=== PATIENT | female | born 1980 | race Hispanic/Latino ===

== ENCOUNTER 2018-03-19 00:05 | Emergency (ER) | payer MEDICARE ==
[2018-03-19 00:22] LABS: APPEARANCE,URINE Clear (CLEAR); BILIRUBIN,URINE Negative (NEGATIVE); COLOR,URINE Yellow (YELLOW); GLUCOSE, URINE (UA) Negative (NEGATIVE); KETONES,URINE Negative (NEGATIVE); LEUKOCYTE ESTERASE ,URINE Negative (NEGATIVE); NITRATE,URINE Negative (NEGATIVE); OCCULT BLOOD,URINE Large (NEGATIVE); PROTEIN,URINE Negative (NEGATIVE); UROBILINOGEN,URINE 0.2 mg/dL (0.2-1.0)
[2018-03-19 00:27] LABS: BACTERIA,URINE None Seen /HPF (None Seen); MUCUS,URINE Moderate LPF (None Seen); SQUAMOUS EPITHELIAL CELL,UR Moderate /HPF (0-2); WBC,URINE 0-1 /HPF (0-1)
[2018-03-19 00:32] LABS: BASOPHILS % (AUTO) 0.1 % (0.0-5.0); EOSINOPHILS % (AUTO) 0.7 % (0.0-8.0); HEMATOCRIT 38.6 % (36-48); LYMPHOCYTES % (AUTO) 10.5 % (21.0-51.0); MEAN CORPUSCULAR HEMOGLOBIN 29.6 pg (27.0-33.0); MEAN CORPUSCULAR HGB CONC 33.7 g/dL (32.0-36.0); MEAN CORPUSCULAR VOLUME 87.9 fL (79-99); MONOCYTES % (AUTO) 2.6 % (3.0-13.0); NEUTROPHILS % (AUTO) 86.1 % (40.0-77.0); PLATELET COUNT (AUTO) 359 K/uL (130-400); RED BLOOD CELL COUNT(AUTO) 4.39 MIL/uL (4.00-5.50); RED CELL DISTRIBUTION WIDTH 13.4 % (11.0-15.5); WHITE BLOOD COUNT (AUTO) 12.1 K/uL (4.8-10.8)
[2018-03-19] MEDS ORDERED: ONDANSETRON HCL 4 MG/2 ML VIAL ONE ×2 (00:33→01:46)
[2018-03-19] MEDS ORDERED: ACETAMINOPHEN 325 MG TAB ONE (00:34)
[2018-03-19] MEDS ORDERED: MORPHINE SULFATE 4 MG/1ML SYG ONE (00:34)
[2018-03-19] MEDS ORDERED: SODIUM CHLORIDE 0.9% 1000ML 1,000 ML IV ONE (00:34)
[2018-03-19 00:42] LABS: CREATININE 0.9 mg/dL (0.5-1.5); POTASSIUM 3.7 mmol/L (3.5-5.1)
[2018-03-19 00:47] LABS: ALBUMIN 3.8 g/dL (3.5-5.0); BILIRUBIN,TOTAL 0.4 mg/dL (0.2-1.0); TOTAL PROTEIN, SERUM 7.6 g/dL (6.0-8.3)
[2018-03-19] MEDS ORDERED: HYOSCYAMINE SULFATE 0.125 MG TAB.SUBL SL ONE (01:16)
[2018-03-19] MEDS ORDERED: KETOROLAC TROMETHAMINE 15MG/ML ONE (01:46)
== END 2018-03-19 02:57 | disposition home or self-care (01) ==
LOC: EDH 00:05
DX: A09 Infectious gastroenteritis and colitis, unspecified (principal); Z98.890 Other specified postprocedural states; Z72.0 Tobacco use
CPT/HCPCS: 36415; 80053; 81001; 81025; 85025; 96361; 96374; 96375; 96376; 99285; J1885; J2270; J2405 ×2; J7030

== ENCOUNTER 2018-08-08 10:02 | Emergency (ER) | payer MEDICARE ==
[2018-08-08] MEDS ORDERED: LORAZEPAM 2 MG/ML 1 ML VIAL ONE (10:27)
[2018-08-08] MEDS ORDERED: ONDANSETRON HCL 4 MG/2 ML VIAL ONE (10:27)
[2018-08-08] MEDS ORDERED: MORPHINE SULFATE 4 MG/1ML SYG ONE (10:27)
[2018-08-08 10:28] LABS: BASOPHILS % (AUTO) 0.6 % (0.0-5.0); EOSINOPHILS % (AUTO) 0.4 % (0.0-8.0); HEMATOCRIT 37.2 % (36-48); MEAN CORPUSCULAR HEMOGLOBIN 29.9 pg (27.0-33.0); MEAN CORPUSCULAR HGB CONC 33.7 g/dL (32.0-36.0); MEAN CORPUSCULAR VOLUME 88.6 fL (79-99); MONOCYTES % (AUTO) 4.4 % (3.0-13.0); NEUTROPHILS % (AUTO) 64.6 % (40.0-77.0); PLATELET COUNT (AUTO) 316 K/uL (130-400); RED CELL DISTRIBUTION WIDTH 13.4 % (11.0-15.5); WHITE BLOOD COUNT (AUTO) 8.3 K/uL (4.8-10.8)
[2018-08-08] MEDS ORDERED: SODIUM CHLORIDE 0.9% 500ML 500 ML IV ONE (10:28)
[2018-08-08 10:33] LABS: CREATININE 0.7 mg/dL (0.5-1.5)
[2018-08-08 10:40] LABS: ALBUMIN 3.7 g/dL (3.5-5.0); BILIRUBIN,TOTAL 0.4 mg/dL (0.2-1.0)
[2018-08-08 10:48] LABS: APPEARANCE,URINE Clear (CLEAR); BILIRUBIN,URINE Negative (NEGATIVE); COLOR,URINE Yellow (YELLOW); GLUCOSE, URINE (UA) Negative (NEGATIVE); KETONES,URINE Negative (NEGATIVE); LEUKOCYTE ESTERASE ,URINE Negative (NEGATIVE); NITRATE,URINE Negative (NEGATIVE); OCCULT BLOOD,URINE Small (NEGATIVE); PROTEIN,URINE Negative (NEGATIVE); UROBILINOGEN,URINE 0.2 mg/dL (0.2-1.0)
[2018-08-08 10:50] LABS: HCG,QUAL RESULT NEGATIVE (NEGATIVE)
[2018-08-08 10:55] LABS: BACTERIA,URINE None Seen /HPF (None Seen); RBC,URINE 0-1 /HPF (0-1); SQUAMOUS EPITHELIAL CELL,UR None Seen /HPF (0-2); WBC,URINE None Seen /HPF (0-1)
== END 2018-08-08 13:20 | disposition home or self-care (01) ==
LOC: EDH 10:02
DX: F14.10 Cocaine abuse, uncomplicated (principal); R07.89 Other chest pain; R51 Headache; Z72.0 Tobacco use
CPT/HCPCS: 36415; 70450; 71045; 80053; 81001; 81025; 82550; 84484; 85025; 93005; 96374; 96375; 99285; J2060; J2270; J2405; J7040

== ENCOUNTER 2018-09-08 13:26 | Emergency (ER) | payer MEDICARE ==
[2018-09-08] MEDS ORDERED: LIDOCAINE HCL 1% 20 ML VIAL ONE (13:57)
== END 2018-09-08 15:20 | disposition home or self-care (01) ==
LOC: EDH 13:26
DX: L02.416 Cutaneous abscess of left lower limb (principal); M79.10 Myalgia, unspecified site; Z98.890 Other specified postprocedural states
CPT/HCPCS: 10060

== ENCOUNTER 2024-11-08 00:15 | Emergency (ER) | payer MEDICARE ==
[~2024-11-08] VITALS: Ht 172.7 cm; Wt 108.9 kg
--- NOTE | 2024-11-08 00:23 | NUR ---
UA CUP PROVIDED
--- NOTE | 2024-11-08 00:32 | ERN ---
ED Note History of Present Illness Stated Complaint: HEADACHE, CHEST PAIN, SOB Chief Complaint: Multiple Complaints Time Seen by MD: 00:30 Dictation: Comes in with multiple complaints she said that she has had some feelings of warmth. Some mild head pain that comes and goes also chest pain that comes and goes. No cough congestion runny nose no fevers chills no medical problems does not take any medications no falls trips traumas Allergies: Coded Allergies: No Known Allergies (Unverified Allergy, Unknown, 11/08/24) Past Medical History Past Medical History: No Pertinent History Surgical History: Other, BTL Surgical History Other: BACK LMP: Oct 16, 2024 Review of System Dictation Constitutional: Negative for fever,chills, and weight loss Eyes: Negative for injury, pain,redness, and discharge ENT: Negative for injury,pain or swelling Cardiovascular: Chest pain Respiratory: Negative for shortness of breath, cough, and wheezing, Abdomen/GI: Negative for abdominal pain, nausea, vomiting, diarrhea, and constipation Back: Negative for injury and pain : Negative for injury, bleeding and discharge MS/Extremity: Negative for injury and deformity Skin: Negative for rash, and discoloration Neuro: Negative for headache, weakness, numbness, tingling, and seizure Psych: Negative for suicide ideation, homicidal ideation, and hallucinations Initial Vital Sign VS Vital Signs Date Time Temp Pulse Resp B/P (MAP) Pulse Ox O2 Delivery O2 Flow Rate FiO2 11/08/24 00:16 98.1 93 20 147/96 100 Room Air 11/08/24 04:10 0 21 Physical Exam Dictation General: awake, alert, NAD Head/Face: Normocephalic, atraumatic Eyes: PERRL, EOMI, vision at baseline ENT: oral cavity clear, TMs clear, no signs of infection Neck: Trachea midline, supple, no nuchal rigidity Cardiovascular: RRR, normal S1/S2, No MRGs, no JVD Respiratory: CTAB, no respiratory distress, No rales or wheezes Abdomen: Soft, non-tender, non-distended, normal bowel sounds, no guarding or rebound. Skin: Warm, dry, normal turgor, no rash MS/Extremity: Pulses equal, no cyanosis, neurovascular intact, FROM Neuro: COAx4, GCS 15, strength 5/5, CN 2-12 intact, normal cerebellar exam, normal gait, Psych: Normal behavior, mood, and affect normal Results (Laboratory/Radiology) Laboratory/Radiology Laboratory Tests Test 11/08/24 04:00 11/08/24 04:29 White Blood Count 11.1 K/uL (4.8-10.8) H Red Blood Count 4.31 MIL/uL (4.00-5.50) Hemoglobin 12.7 g/dL (12.0-16.0) Hematocrit 38.4 % (36-48) Mean Corpuscular Volume 89.1 fL (79-99) Mean Corpuscular Hemoglobin 29.5 pg (27.0-33.0) Mean Corpuscular Hemoglobin Concent 33.1 g/dL (32.0-36.0) Red Cell Distribution Width 12.7 % (11.0-15.5) Platelet Count 364 K/uL (130-400) Mean Platelet Volume 9.2 fL (7.5-10.5) Immature Granulocyte % (Auto) 0.5 % (0-1) Neutrophils (%) (Auto) 59.5 % (40.0-77.0) Lymphocytes (%) (Auto) 33.4 % (21.0-51.0) Monocytes (%) (Auto) 4.9 % (3.0-13.0) Eosinophils (%) (Auto) 1.4 % (0.0-8.0) Basophils (%) (Auto) 0.3 % (0.0-5.0) Neutrophils # (Auto) 6.6 K/uL (1.8-7.7) Lymphocytes # (Auto) 3.7 K/uL (1.0-4.8) Monocytes # (Auto) 0.5 K/uL (0.1-1.0) Eosinophils # (Auto) 0.15 K/uL (0.00-0.70) Basophils # (Auto) 0.03 K/uL (0.00-0.20) Absolute Immature Granulocyte (auto 0.06 K/uL (0-1) Nucleated Red Blood Cells 0.0 % (0.0-0.19) Urine Color COLORLESS (YELLOW) Urine Appearance CLEAR (CLEAR) Urine pH 7.0 (5.0-8.0) Urine Specific Ryder 1.013 (1.001-1.031) Urine Protein NEGATIVE mg/dL (NEGATIVE) Urine Glucose (UA) NEGATIVE mg/dL (NEGATIVE) Urine Ketones NEGATIVE mg/dL (NEGATIVE) Urine Occult Blood SMALL (NEGATIVE) H Urine Nitrate NEGATIVE (NEGATIVE) Urine Bilirubin NEGATIVE mg/dL (NEGATIVE) Urine Urobilinogen 0.2 mg/dL (0.2-1.0) Urine Leukocyte Esterase 25 Priscilla/uL (NEGATIVE) H Urine RBC 6-10 /HPF (0-1) H Urine WBC 2-5 /HPF (0-1) H Urine Squamous Epithelial Cells RARE /HPF (0-2) Urine Bacteria FEW /HPF (None Seen) Sodium Level 133 mmol/L (136-145) L Potassium Level 3.9 mmol/L (3.5-5.1) Chloride Level 102 mmol/L (101-111) Carbon Dioxide Level 27 mmol/L (21-32) Blood Urea Nitrogen 19 mg/dL (7-18) H Creatinine 0.9 mg/dL (0.5-1.0) Glomerular Filtration Rate Calc 80 mL/min (>90) Random Glucose 100 mg/dL (70-105) Total Calcium 9.2 mg/dL (8.5-10.1) Total Creatine Kinase 76 U/L (21-232) Serum Test, Qualitative NEGATIVE (NEGATIVE) Troponin I < 0.05 ng/mL (0.00-0.05) ED Course ED Course Orders Procedure Category Date Status Time Vital Signs Per CPOE 11/08/24 Transmitted Routine 00:18 B-Type Natriuretic LAB 11/08/24 In Process Peptide 00:18 Chest 1vw RAD 11/08/24 Taken 00:18 12 Lead Ekg Tracing- EKG 11/08/24 Logged Technical 00:18 Oxygen By Nc/Pulse Ox CPOE 11/08/24 Transmitted 00:18 Maintain Iv CPOE 11/08/24 Transmitted 00:18 Iv Insertion CPOE 11/08/24 Transmitted 00:18 Cardiac Monitoring CPOE 11/08/24 Transmitted 00:18 Pulse Oximetry With CPOE 11/08/24 Transmitted Vs And Prn 00:18 Cbc With Differential LAB 11/08/24 In Process 00:18 Activity: Br W/Brp CPOE 11/08/24 Transmitted With Assist 00:18 Creatine Kinase, Total LAB 11/08/24 Complete 00:18 Urinalysis Profile LAB 11/08/24 Complete 00:18 Troponin Poc Order LAB 11/08/24 Complete Only 00:18 Bedside Troponin-I LAB.ER 11/08/24 In Process (Poc) 00:18 Basic Metabolic Panel LAB 11/08/24 Complete 00:18 Troponin I High LAB 11/08/24 In Process Sensitivity 00:18 Testing, LAB 11/08/24 Complete Serum Hcg 00:18 Ct Head/Brain W/O CT 11/08/24 Resulted Contrast 00:18 Ondansetron 4mg Inj PHA 11/08/24 Complete (Zofran 4mg Inj) 04:30 Hydrocodone/Apap PHA 11/08/24 Complete 5/325 ([place] 5/325mg) 04:30 Current Medications Medications (Trade) Dose Ordered Sig/Matias Route PRN Reason Start Time Stop Time Status Last Admin Dose Admin Acetaminophen/ Hydrocodone Bitart (NORco 5/325MG) 1 tab ONCE ONCE PO 11/08/24 04:30 11/08/24 04:31 DC 11/08/24 04:16 Ondansetron HCl (zoFRAN 4MG INJ) 4 mg ONCE ONCE IVP 11/08/24 04:30 11/08/24 04:31 DC 11/08/24 04:16 Vital Signs Date Time Temp Pulse Resp B/P (MAP) Pulse Ox O2 Delivery O2 Flow Rate FiO2 11/08/24 04:10 98.2 91 18 141/79 99 Room Air* 0 21 11/08/24 00:16 98.1 93 20 147/96 100 Room Air Medical Decision Making MDM Told patient we do some labs test imaging. As she is not have any URI bronchitis pneumonias symptoms does have this intermittent chest pain over the last several weeks. I told her that this could be from early menopause. Again she is not have any abdominal pain no abdominal pain tenderness. No dysuria hematuria discharge. No signs of intra abdominal. Pathology. No signs of intrathoracic pathology has been no other than intermittent abdominal pain NIH of 0 cerebellar testing within normal limits is able to ambulate without difficulty a low risk is not have previous medical problems or taking medications. Heart score of one patient's lab tests imaging stable within normal limits. Possibly attached so and give some antibiotics for this the questions complaints concerns at this time. DX & DISP Disposition: Discharge Departure Impression: Primary Impression: Chest pain Condition: Stable Scripts Cephalexin Monohydrate (Keflex) 500 Mg Cap 500 MG PO QID for 5 Days, #28 CAP Prov: RACHEAL MARQUEZ MD 11/08/24 Referrals: WERO RESENDEZ (PCP) RACHEAL MARQUEZ MD Nov 08, 2024 00:32
--- NOTE | 2024-11-08 01:22 | HMCIMG ---
CT HEAD/BRAIN W/O CONTRAST HISTORY: Headaches COMPARISON: None TECHNIQUE: Multiple sequential axial images of the head were obtained from the base of the skull through vertex. Patient was not given contrast through intravenous route. FINDINGS: The ventricles and extraventricular CSF spaces are nondilated for patient's age. There is no midline shift, mass effect or herniation. No acute intracranial bleed is seen. Visualized portion of the paranasal sinuses are grossly within normal limits. IMPRESSION: 1. No acute intracranial bleed is seen. CT was performed with one or more following dose reduction techniques: automated exposure control, adjustment of the mA and kv according to patient's size, or use of a iterative reconstruction technique.
--- NOTE | 2024-11-08 03:52 | NUR ---
assumed pt care at this time
[2024-11-08 04:12] LABS: BASOPHILS # (AUTO) 0.03 K/uL (0.00-0.20); BASOPHILS % (AUTO) 0.3 % (0.0-5.0); EOSINOPHILS # (AUTO) 0.15 K/uL (0.00-0.70); EOSINOPHILS % (AUTO) 1.4 % (0.0-8.0); HEMATOCRIT 38.4 % (36-48); IMMATURE GRANULOCYTE ABSOLUTE 0.06 K/uL (0-1); LYMPHOCYTES # (AUTO) 3.7 K/uL (1.0-4.8); LYMPHOCYTES % (AUTO) 33.4 % (21.0-51.0); MEAN CORPUSCULAR HEMOGLOBIN 29.5 pg (27.0-33.0); MEAN CORPUSCULAR HGB CONC 33.1 g/dL (32.0-36.0); MEAN CORPUSCULAR VOLUME 89.1 fL (79-99); MONOCYTES # (AUTO) 0.5 K/uL (0.1-1.0); MONOCYTES % (AUTO) 4.9 % (3.0-13.0); NEUTROPHILS # (AUTO) 6.6 K/uL (1.8-7.7); NEUTROPHILS % (AUTO) 59.5 % (40.0-77.0); PLATELET COUNT (AUTO) 364 K/uL (130-400); RED BLOOD CELL COUNT(AUTO) 4.31 MIL/uL (4.00-5.50); RED CELL DISTRIBUTION WIDTH 12.7 % (11.0-15.5); WHITE BLOOD COUNT (AUTO) 11.1 K/uL (4.8-10.8)
[2024-11-08 04:14] LABS: APPEARANCE,URINE CLEAR (CLEAR); BILIRUBIN,URINE NEGATIVE (NEGATIVE); COLOR,URINE COLORLESS (YELLOW); GLUCOSE, URINE (UA) NEGATIVE (NEGATIVE); KETONES,URINE NEGATIVE (NEGATIVE); LEUKOCYTE ESTERASE ,URINE 25 Leu/uL (NEGATIVE); NITRATE,URINE NEGATIVE (NEGATIVE); OCCULT BLOOD,URINE SMALL (NEGATIVE); PROTEIN,URINE NEGATIVE (NEGATIVE); UROBILINOGEN,URINE 0.2 mg/dL (0.2-1.0)
[2024-11-08] MEDS: ondanSETRON 4MG INJ IVP ONE (04:16)
[2024-11-08] MEDS: HYDROcodone/APAP 5/325 1 TAB TABLET PO ONE (04:16)
[2024-11-08 04:20] LABS: ADD UA MICROSCOPIC YES; BACTERIA,URINE FEW /HPF (None Seen); MUCUS,URINE RARE LPF (None Seen); SQUAMOUS EPITHELIAL CELL,UR RARE /HPF (0-2)
[2024-11-08 04:24] LABS: CREATININE 0.9 mg/dL (0.5-1.0); POTASSIUM 3.9 mmol/L (3.5-5.1)
[2024-11-08] MEDS ORDERED: CEPH500B PO (04:39)
[2024-11-08 04:42] LABS: B-TYPE NATRIURETIC PEPTIDE < 5 pg/mL (0-100)
[2024-11-08 04:53] VITALS: BP 132/72; PULSE 86; RESP 18; TEMP 98; O2SAT 100
--- NOTE | 2024-11-08 05:25 | EKG ---
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
--- NOTE | 2024-11-08 08:39 | HMCIMG ---
Exam Type: CHEST 1VW Clinical Information: CHEST PAIN Comparison: None Findings: The lungs are clear of infiltrates. The heart is normal in size. The bony and soft tissue structures of the chest are unremarkable. Impression: Clear lungs.
== END 2024-11-08 04:54 | disposition home or self-care (01) ==
LOC: EDH 00:15
DX: R07.89 Other chest pain (principal); Z98.51 Tubal ligation status
CPT/HCPCS: 99285; 96374; 70450; 71045; 82550; 84484 ×2; 80048; 83880; 84703; 85025; 81001; 36415; 93005; J2405